=== PATIENT | female | born 1985 | race Caucasian/White ===

== ENCOUNTER 2024-06-12 19:32 | Emergency (ER) | payer OTHER ==
[~2024-06-12] VITALS: Ht 170.2 cm; Wt 85.7 kg
[2024-06-12] MEDS ORDERED: ASPIRIN 81 MG CHEW PO ONE (19:45)
[2024-06-12] MEDS ORDERED: NITROGLYCERIN PACKET TOP ONE (19:45)
[2024-06-12 19:58] LABS: EOSINOPHILS 3.5 % (0-6); HEMATOCRIT 36.8 % (35.0-50.0); HEMOGLOBIN 12.5 g/dL (12.0-18.0); LYMPHOCYTES 34.4 % (24-44); MCH 32.4 (27-36); MCV 95.3 fl (81-99); MONOCYTES 8.2 % (0-12); NEUTROPHILS 52.9 % (39-80); PLATELET COUNT 320 K/uL (140-440); RBC 3.86 M/ul (4.3-5.7); RDW 13.3 (10.5-15.0)
[2024-06-12 20:12] LABS: INR 0.93 (0.80-1.30); PROTIME 12.3 Sec (11.2-14.2)
[2024-06-12 20:29] LABS: ALBUMIN 4.1 g/dL (3.4-5.0); ALBUMIN/GLOBULIN RATIO 1.08 (1.1-2.4); ANION GAP 12.3 (7-21); BILIRUBIN, TOTAL 0.5 mg/dL (0.2-1.0); BUN/CREATININE RATIO 10.1 (6.0-28.6); CALCIUM 8.9 mg/dL (8.5-10.1); CREATININE, SERUM 0.99 mg/dL (0.55-1.02); MAGNESIUM 1.9 mg/dL (1.8-2.4); POTASSIUM 3.3 mmol/L (3.5-5.1); PROTEIN, TOTAL 7.9 g/dL (6.4-8.2)
[2024-06-12 21:00] LABS: INFLUENZA B NAA NEGATIVE (NEGATIVE); RESPIRATORY SYNCYTIAL VIR NAA NEGATIVE (NEGATIVE)
[2024-06-12] MEDS ORDERED: CYCLOBENZAPRINE10 MG PO (21:42)
[2024-06-12 22:15] VITALS: BP 140/83
[2024-06-12] MEDS ORDERED: LISINOPRIL20 MG PO (22:22)
[2024-06-12] MEDS ORDERED: ASPIRIN81 MG PO (22:22)
[2024-06-12] MEDS ORDERED: METOPROLOL SUCC25 MG PO (22:22)
--- NOTE | 2024-06-14 12:56 | EKG ---
[facility] [address] [facility] [place], [place] [address] Signed Normal sinus rhythm Right bundle branch block Abnormal ECG No previous ECGs available Confirmed by Kaitlynn Garces DO ([id number]) on 06/14/2024 12:55:47 PM Electronically Signed By: KAITLYNN GARCES DO 06/14/24 1256 PATIENT NAME: MARIELLE BOOKER Electrocardiogram DATE OF : 87 PHYSICIAN: KAITLYNN GARCES DO REPORT #: [id number] REPORT IS CONFIDENTIAL AND NOT TO BE RELEASED WITHOUT AUTHORIZATION
== END 2024-06-12 22:15 | disposition home or self-care (01) ==
LOC: ED 19:32
PROVIDERS: Family Medicine
DX: R07.89 Other chest pain (principal); R00.2 Palpitations; Z95.3 Presence of xenogenic heart valve; Z79.82 Long term (current) use of aspirin; Z79.899 Other long term (current) drug therapy
CPT/HCPCS: 36415; 71045; 71260; 80053; 83735; 83880; 84484; 84703; 85025; 85379; 85610; 87502; 93005; 93010; 99285-25; A9270; Q9967; U0002

== ENCOUNTER 2024-11-05 01:18 | Emergency (ER) | payer OTHER ==
[~2024-11-05] VITALS: Ht 170.2 cm; Wt 90.4 kg
[~2024-11-05 01:18] MED LIST: ASPIRIN81 MG PO; CYCLOBENZAPRINE10 MG PO; LISINOPRIL20 MG PO; METOPROLOL SUCC25 MG PO
[2024-11-05 01:44] LABS: BASOPHILS 0.8 % (0.1-1.2); EOSINOPHILS 4.1 % (0.7-5.8); LYMPHOCYTES 33.2 % (19.3-51.7); MCH 30.7 PG (25.6-32.2); MCHC 31.5 g/dL (32.2-35.5); MCV 97.5 fL (79.4-94.8); MONOCYTES 4.5 % (4.7-12.5); NEUTROPHILS 57.2 % (34.0-71.1); RBC 4.37 M/uL (3.93-5.22)
[2024-11-05 01:57] LABS: ALT (SGPT) 28.0 U/L (14-59); AST (SGOT) 25.0 U/L (15-37); GLOMERULAR FILTRATION RATE,EST 91.0 mL/min (>60); PROTEIN, TOTAL 8.7 g/dL (6.4-8.2); UREA NITROGEN 6.0 mg/dL (7-18)
[2024-11-05 03:44] LABS: BLOOD/HGB, URINE NEGATIVE (Negative); KETONE, URINE NEGATIVE (Negative); LEUK ESTERASE, URINE NEGATIVE (negative); NITRITE, URINE NEGATIVE (negative)
[2024-11-05 03:49] LABS: EPITHELIAL CELLS, URINE SQUAMOUS 1+ /lpf (0-1+)
[2024-11-05 03:50] LABS: BACTERIA, URINE RARE /hpf (negative); CASTS, URINE NONE SEEN \\lpf; CRYSTALS, URINE NONE SEEN (0-1+); REFLEX CULTURE, URINE No (No)
[2024-11-05 03:59] LABS: AMPHETAMINES, URINE NEGATIVE (NEGATIVE); BARBITURATES, URINE NEGATIVE (NEGATIVE); BENZODIAZEPINE, URINE NEGATIVE (NEGATIVE); CANNABINOID, URINE NEGATIVE (NEGATIVE); COCAINE, URINE NEGATIVE (NEGATIVE); ECSTASY, URINE NEGATIVE (NEGATIVE); FENTANYL, URINE NEGATIVE (NEGATIVE); METHADONE, URINE NEGATIVE (NEGATIVE); OPIATES, URINE NEGATIVE (NEGATIVE); OXYCODONE, URINE NEGATIVE (NEGATIVE); PHENCYCLIDINE, URINE NEGATIVE (NEGATIVE)
[2024-11-05 04:18] VITALS: BP 124/75
--- NOTE | 2024-11-05 23:26 | EKG ---
[facility] [address] [place] [address] Signed Normal sinus rhythm Right bundle branch block Left anterior fascicular block Bifascicular block Abnormal ECG When compared with ECG of 12-JUN-2024 19:43, Vent. rate has increased BY 31 BPM QRS axis shifted left QT has lengthened Confirmed by Nelson Milner MD () on 11/05/2024 11:25:46 PM Electronically Signed By: NELSON MILNER MD 11/05/24 2326 PATIENT NAME: MARIELLE BOOKER Electrocardiogram DATE OF : 87 PHYSICIAN: NELSON MILNER MD REPORT #: [id number] REPORT IS CONFIDENTIAL AND NOT TO BE RELEASED WITHOUT AUTHORIZATION
== END 2024-11-05 04:19 | disposition home or self-care (01) ==
LOC: ED 01:18
PROVIDERS: Emergency Medicine
DX: R07.9 Chest pain, unspecified (principal); R53.1 Weakness; R53.81 Other malaise; Z79.82 Long term (current) use of aspirin; Z79.899 Other long term (current) drug therapy
CPT/HCPCS: 36415; 70450; 70496; 70498; 71045; 80053; 80307; 81001; 83735; 84484; 84703; 85025; 93005; 93010; 99285-25; Q9967

== ENCOUNTER 2025-02-21 23:16 | Emergency (ER) | payer OTHER ==
[~2025-02-21] VITALS: Ht 170.2 cm; Wt 90.4 kg
[2025-02-21] MEDS ORDERED: LORazepam 2 MG/ML VIAL IM ONE (23:30)
[2025-02-21] MEDS ORDERED: HALOPERIDOL LACTATE 5 MG/ML VIAL IM ONE (23:30)
[2025-02-21 23:58] LABS: BASOPHILS 0.8 % (0.1-1.2); EOSINOPHILS 4.7 % (0.7-5.8); LYMPHOCYTES 32.2 % (19.3-51.7); MCH 31.1 PG (25.6-32.2); MCHC 33.3 g/dL (32.2-35.5); MCV 93.2 fL (79.4-94.8); MONOCYTES 4.0 % (4.7-12.5); NEUTROPHILS 58.1 % (34.0-71.1); RBC 4.09 M/uL (3.93-5.22)
[2025-02-22 00:08] LABS: BLOOD/HGB, URINE LARGE (Negative); KETONE, URINE NEGATIVE (Negative); LEUK ESTERASE, URINE TRACE (negative); NITRITE, URINE NEGATIVE (negative)
[2025-02-22 00:14] LABS: EPITHELIAL CELLS, URINE SQUAMOUS 1+ /lpf (0-1+)
[2025-02-22 00:15] LABS: BACTERIA, URINE NONE SEEN /hpf (negative); CASTS, URINE NONE SEEN \\lpf; CRYSTALS, URINE NONE SEEN (0-1+); REFLEX CULTURE, URINE No (No)
[2025-02-22 00:21] LABS: AMPHETAMINES, URINE NEGATIVE (NEGATIVE); BARBITURATES, URINE NEGATIVE (NEGATIVE); BENZODIAZEPINE, URINE NEGATIVE (NEGATIVE); CANNABINOID, URINE NEGATIVE (NEGATIVE); COCAINE, URINE NEGATIVE (NEGATIVE); ECSTASY, URINE NEGATIVE (NEGATIVE); FENTANYL, URINE NEGATIVE (NEGATIVE); METHADONE, URINE NEGATIVE (NEGATIVE); OPIATES, URINE NEGATIVE (NEGATIVE); OXYCODONE, URINE NEGATIVE (NEGATIVE); PHENCYCLIDINE, URINE NEGATIVE (NEGATIVE)
[2025-02-22 00:24] LABS: ALCOHOL, MEDICAL 214 ng/dL (<3); ALT (SGPT) 48 U/L (14-59); AST (SGOT) 26 U/L (15-37); GLOMERULAR FILTRATION RATE,EST 95 mL/min (>60); PROTEIN, TOTAL 8.4 g/dL (6.4-8.2); TSH, 3RD GENERATION 3.190 uIU/mL (0.358-3.740); UREA NITROGEN 6 mg/dL (7-18)
[2025-02-22 02:23] VITALS: BP 129/87
== END 2025-02-22 03:00 | disposition home or self-care (01) ==
LOC: ED 23:16
PROVIDERS: Family Medicine
DX: R45.851 Suicidal ideations (principal); F10.129 Alcohol abuse with intoxication, unspecified; Y90.7 Blood alcohol level of 200-239 mg/100 ml; Y09 Assault by unspecified means
CPT/HCPCS: 36415; 80053; 80307; 81001; 84443; 84703; 85025; 99285; G0480

== ENCOUNTER 2025-03-01 23:22 | Emergency (ER) | payer OTHER | END 2025-03-02 01:30 | disposition home or self-care (01) | LOC: ED 23:22 | DX: T14.91XA Suicide attempt, initial encounter (principal); S61.512A Laceration without foreign body of left wrist, initial encounter; X78.1XXA Intentional self-harm by knife, initial encounter; F10.90 Alcohol use, unspecified, uncomplicated; Y90.7 Blood alcohol level of 200-239 mg/100 ml ==